=== PATIENT | male | born 1970 | race Caucasian/White ===

== ENCOUNTER 2017-08-14 13:52 | Inpatient (IN) | payer OTHER ==
[2017-08-14 16:34] VITALS: BMI 35.9
--- NOTE | 2017-08-14 17:33 | HP ---
COWS - Scale Resting Pulse: 0= [place] 80 or Below Sweatin= Chills/Flushing Restless Observation: 1= Difficult to Sit Still Pupil Size: 1= Pupils >than Normal Bone or Joint Aches: 1= Mild Discomfort Runny Nose/ Eye Tearin= None GI Upset > 30mins: 3= Vomiting/Diarrhea Tremor Observation: 2= Slight Tremor Visible Yawning Observation: 1= 1-2x During Session Anxiety or Irritability: 2=Irritable/Anxious Goose Flesh Skin: 3=Piloerection COWS Score: 15 CIWA Score - CIWA Score Nausea/Vomitin Muscle Tremors: 3 Anxiety: 2 Agitation: 1-Slight > Activity Paroxysmal Sweats: 2 Orientation: 0-Oriented Tacttile Disturbances: 2-Mild Itch/Numbness/Burn (burningand itch on both nads and arms) Auditory Disturbances: 0-None Visual Disturbances: 1-Very Mild Sensitivity Headache: 2-Mild CIWA-Ar Total Score: 16 Admission ROS [facility] - HPI Chief Complaint: I relapse again I want to get this detox done and I really want to go to rehab Allergies/Adverse Reactions: Allergies Allergy/AdvReac Type Severity Reaction Status Date / Time No Known Allergies Allergy Verified 08/14/17 16:40 History of Present Illness: 47 yo male with hx of IV heroin, THC, cocaine, alcohol , Xanax nicotine is here seeking detox. Patient reports currently smokes, 1 pack of cigarettes per day PMHX: depression, anxiety, insomnia, deneis any other medical problems. Last detox 2 weeks ago at [facility]. Denies suicidal / homicidal ideation or suicide attempts Reports hx of blackouts, last episode 45 days ago, denies hx of seizures. Denies hx of overdose. Longest period of sobriety 3 yeras about 10 years ago . Exam Limitations: No Limitations - Ebola screening Have you traveled outside of the country in the last 21 days: No Have you had contact with anyone from an Ebola affected area: No Have you been sick,other than usual withdrawal symptoms: No Do you have a fever: No - Review of Systems Constitutional: Chills, Loss of Appetite, Changes in sleep, Weakness, Unintentional Wgt. Loss (2-3 weeks loss 5 lbs) EENT: reports: Other (uses glasses for reading) Respiratory: reports: Wheezing (with cigarrette smoking) Cardiac: reports: No Symptoms Reported, See HPI GI: reports: Diarrhea, Nausea, Poor Appetite, Poor Fluid Intake, Vomiting, Abdominal cramping : reports: No Symptoms Reported Musculoskeletal: reports: Back Pain, Joint Pain Integumentary: reports: No Symptoms Reported Neuro: reports: Headache, Numbness (both hands and arms) Endocrine: reports: See HPI, Increased Thirst Hematology: reports: No Symptoms Reported Psychiatric: reports: Orientated x3, Depressed Other Systems: Reviewed and Negative Patient History - Patient Medical History Hx Anemia: No Hx Asthma: No Hx Chronic Obstructive Pulmonary Disease (COPD): No Hx Cancer: No Hx Cardiac Disorders: No Hx Congestive Heart Failure: No Hx Hypertension: No Hx Hypercholesterolemia: No Hx Pacemaker: No HX Cerebrovascular Accident: No Hx Seizures: No Hx Dementia: No Hx Diabetes: No Hx Gastrointestinal Disorders: No Hx Liver Disease: No Hx Genitourinary Disorders: No Hx Sexually Transmitted Disorders: No Hx Renal Disease (ESRD): No Hx Thyroid Disease: No Hx Human Immunodeficiency Virus (HIV): No (last tested 2016 ) Hx Hepatitis C: Yes (treated 2016) Hx Depression: Yes Hx Suicide Attempt: No Hx Bipolar Disorder: No Hx Schizophrenia: No Other Medical History: SOB and wheezing no dx of asthma, attributes to cigarretes smoking since 14 - Patient Surgical History Past Surgical History: No Hx Neurologic Surgery: No Hx Cataract Extraction: No Hx Cardiac Surgery: No Hx Lung Surgery: No Hx Breast Surgery: No Hx Breast Biopsy: No Hx Abdominal Surgery: No Hx Appendectomy: No Hx Cholecystectomy: No Hx Genitourinary Surgery: No Hx Section: No Hx Orthopedic Surgery: No Anesthesia Reaction: No - PPD History Previous Implant?: Yes Documented Results: Negative w/o proof Implanted On Prior [facility] Admission?: No Date: 01/10/13 PPD to be Administered?: No - Reproductive History Patient is a Female of Child Bearing Age (11 -55 yrs old): No - Smoking Cessation Smoking history: Current every day smoker Have you smoked in the past 12 months: Yes Aproximately how many cigarettes per day: 20 Hx Chewing Tobacco Use: No Initiated information on smoking cessation: Yes 'Breaking Loose' booklet given: 08/14/17 - Substance & Tx. History Hx Alcohol Use: Yes Hx Substance Use: Yes Substance Use Type: Alcohol, Cocaine, Heroin, Marijuana, Opiates, Tranquilizers Hx Substance Use Treatment: Yes ([facility] 2 weeks ago ) - Substances Abused Heroin Route: Injection Frequency: Daily Amount used: 15 BAGS Age of first use: 29 Date of Last Use: 08/14/17 Alprazolam (Xanax) Route: Oral Frequency: Daily Amount used: 4-6MG Age of first use: 29 Date of Last Use: 08/13/17 Alcohol Route: Oral Frequency: Daily Amount used: 1-2 PINTS VODKA Age of first use: 15 Date of Last Use: 08/11/17 Crack Route: Smoking Frequency: Daily Amount used: $50-60 Age of first use: 29 Date of Last Use: 08/13/17 Marijuana/Hashish Route: Smoking Frequency: Daily Amount used: 2 JOINTS Age of first use: 14 Date of Last Use: 08/13/17 Family Disease History - Family Disease History Family Disease History: Other: Father (., accident on the job ), Mother ( alive and well ) Admission Physical Exam [facility] - Vital Signs Vital Signs: Vital Signs - 24 hr 08/14/17 16:33 Temperature 96.9 F L Pulse Rate 68 Respiratory 20 Rate Blood Pressure 147/89 - Physical General Appearance: Yes: Mild Distress, Obese, Tremorous, Sweating HEENTM: Yes: EOMI, Hearing grossly Normal, Normal ENT Inspection, Normocephalic , Normal Voice, SWATI, Pharynx Normal, Tm's normal Respiratory: Yes: Chest Non-Tender, Lungs Clear, Normal Breath Sounds, No Respiratory Distress, No Accessory Muscle Use Neck: Yes: Within Normal Limits Breast: Yes: Breast Exam Deferred Cardiology: Yes: Regular Rhythm, Regular Rate Abdominal: Yes: Normal Bowel Sounds, Non Tender, Soft, Protuberent Genitourinary: Yes: Within Normal Limits Musculoskeletal: Yes: full range of Motion, Gait Steady, Pelvis Stable, Back pain Extremities: Yes: Normal Capillary Refill, Normal Inspection, Normal Range of Motion, Tremors Neurological: 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, Fully Oriented, Alert, Motor Strength 5/5, Depressed Affect Integumentary: Yes: Normal Color, Diaphoresis, Track Faust (bilateral track faust on both arms without signs of infection) Lymphatic: Yes: Within Normal Limits - Diagnostic (1) Obese Current Visit: Yes Status: Acute Qualifiers: Obesity type: unspecified obesity type Body mass index: BMI 35.0-35.9 (2) Opioid dependence with withdrawal Current Visit: Yes Status: Acute (3) Marijuana dependence Current Visit: Yes Status: Acute (4) Alcohol dependence with uncomplicated withdrawal Current Visit: Yes Status: Acute (5) Sedative, hypnotic or anxiolytic dependence with withdrawal, unspecified Current Visit: Yes Status: Acute (6) Back pain Current Visit: Yes Status: Acute Qualifiers: Back pain location: low back pain Back pain laterality: bilateral Sciatica presence: without sciatica (7) Depressed affect Current Visit: Yes Status: Acute (8) Cocaine dependence Current Visit: No Status: Active (9) Nicotine dependence Current Visit: No Status: Active (10) Weight decreased Current Visit: No Status: Active (11) Nausea vomiting and diarrhea Current Visit: Yes Status: Acute (12) Elevated blood pressure reading in office without diagnosis of hypertension Current Visit: Yes Status: Acute Cleared for Admission [facility] - Detox or Rehab [facility] Level of Care: Medically Managed Detox Regimen/Protocol: Methadone/Valium S Breath Alcohol Content Breath Alcohol Content: 0 Urine Drug Screen - Results Drug Screen Negative: No Urine Drug Screen Results: THC-Marijuana, KALEN-Cocaine, OPI-Opiates, BZO- Benzodiazepines, MTD-Methadone
[2017-08-14] MEDS ORDERED: ACETAMINOPHEN 325 MG TABLET (FP) PO PRN (17:50)
[2017-08-14] MEDS ORDERED: guaiFENesin/D-METHORPHAN HB 10 ML UNIT-DOSE CUPS PO PRN (17:50)
[2017-08-14] MEDS ORDERED: P-EPHED 60MG/TRIPROLIDI 2.5MG TABLET PO PRN (17:50)
[2017-08-14] MEDS ORDERED: LOPERAMIDE HCL 2 MG CAPSULE PO PRN (17:50)
[2017-08-14] MEDS ORDERED: MAGNESIUM CITRATE 300 ML BOTTLE PO PRN (17:50)
[2017-08-14] MEDS ORDERED: MAG HYDROX/AL HYDROX/SIMETH 30 ML UNIT-DOSE CUP PO PRN (17:50)
[2017-08-14] MEDS ORDERED: NICOTINE POLACRILEX 2 MG GUM BC PRN (17:50)
[2017-08-14] MEDS ORDERED: MAGNESIUM HYDROX 2400MG/30ML ORAL SUSPENSION 30 ML CUP PO PRN (17:50)
[2017-08-14] MEDS ORDERED: MENTHOL/PHENOL 1 EACH UD MM PRN (17:50)
[2017-08-14] MEDS ORDERED: CYCLOBENZAPRINE HCL 10 MG TABLET (FP) PO PRN (17:53)
[2017-08-14] MEDS ORDERED: diazePAM 5 MG TABLET PO ONE (18:45)
[2017-08-14] MEDS ORDERED: METHADONE HCL 10 MG TABLET (FOR DETOX USE ONLY) PO ONE ×2 (18:45→23:00)
[2017-08-14] MEDS: LIDOCAINE 5% TOPICAL PATCH TP SCH (20:27)
[2017-08-14] MEDS ORDERED: MELATONIN 5 MG TABLETS PO PRN (22:00)
[2017-08-14] MEDS: diazePAM 5 MG TABLET PO SCH (22:46)
[2017-08-14] MEDS: THIAMINE HCL 100 MG TABLET (FP) PO SCH (22:46)
[2017-08-14] MEDS: LIDOCAINE PATCH REMOVAL MC SCH (22:47)
[2017-08-15] MEDS: diazePAM 5 MG TABLET PO PRN ×3 (01:34→19:54)
[2017-08-15] MEDS: diazePAM 5 MG TABLET PO SCH ×3 (05:58→22:54)
[2017-08-15 06:16] LABS: URINE APPEARANCE TURBID; URINE BILIRUBIN NEGATIVE (<2.0 mg/dL); URINE BLOOD NEGATIVE (NEGATIVE); URINE COLOR AMBER; URINE GLUCOSE (UA) NEGATIVE (NEGATIVE); URINE KETONE NEGATIVE (NEGATIVE); URINE LEUK ESTERASE NEGATIVE (NEGATIVE); URINE NITRITE NEGATIVE (NEGATIVE); URINE PROTEIN NEGATIVE (NEGATIVE); URINE UROBILINOGEN NEGATIVE mg/dL (0.2-1.0)
[2017-08-15] MEDS ORDERED: METHADONE HCL 10 MG TABLET (FOR DETOX USE ONLY) PO SCH (10:00)
[2017-08-15 10:08] LABS: HEMATOCRIT 41.5 % (35.4-49); MCH 30.1 pg (25.7-33.7); MCHC 33.7 g/dl (32.0-35.9); MEAN CELL VOLUME 89.4 fl (80-96); MEAN PLT VOLUME 10.7 fl (7.5-11.1); PLATELET COUNT 139 K/MM3 (134-434); RBC 4.64 M/mm3 (4.00-5.60); RDW 13.9 % (11.9-15.9); WHITE BLOOD COUNT 5.7 K/mm3 (4.0-10.0)
[2017-08-15 10:36] LABS: CHLORIDE 107 mmol/L (98-107); POTASSIUM 3.9 mmol/L (3.5-5.1); SODIUM 141 mmol/L (136-145)
[2017-08-15 11:01] LABS: ALBUMIN 3.6 g/dl (3.4-5.0); ALK PHOS 64 U/L (45-117); ANION GAP 6 (8-16); BILIRUBIN,TOTAL 0.3 mg/dL (0.2-1.0); BLOOD UREA NITROGEN 12 mg/dL (7-18); CALCIUM 8.4 mg/dL (8.5-10.1); CO2 28 mmol/L (21-32); CREATININE 0.8 mg/dL (0.7-1.3); GLUCOSE,RANDOM 110 mg/dL (74-106); SGOT/AST 8 U/L (15-37); SGPT/ALT 18 U/L (12-78); TOT PROT 6.4 g/dl (6.4-8.2)
[2017-08-15] MEDS: PRENATAL VITAMINS W/ FOLIC ACID TABLET (FP) PO SCH (11:10)
[2017-08-15] MEDS: NICOTINE 21 MG/24 HOURS TOPICAL PATCH TD SCH (11:10)
[2017-08-15] MEDS: LIDOCAINE 5% TOPICAL PATCH TP SCH (11:10)
--- NOTE | 2017-08-15 11:31 | EKG ---
Test Reason : Blood Pressure : / mmHG Vent. Rate : 067 BPM Atrial Rate : 067 BPM P-R Int : 140 ms QRS Dur : 086 ms QT Int : 388 ms P-R-T Axes : 049 056 057 degrees QTc Int : 409 ms NORMAL SINUS RHYTHM WITH SINUS ARRHYTHMIA POSSIBLE LEFT ATRIAL ENLARGEMENT BORDERLINE ECG NO PREVIOUS ECGS AVAILABLE Confirmed by TERRI PSACUAL, NATHANIEL ([id number]) on 08/15/2017 11:30:55 AM Referred By: Confirmed By:NATHANIEL MURRAY MD
--- NOTE | 2017-08-15 14:01 | PN ---
[facility] CIWA - CIWA Score Nausea/Vomitin-No Nausea/No Vomiting Muscle Tremors: 4-Moderate,w/Arms Extend Anxiety: 4-Mod. Anxious/Guarded Agitation: 4-Moderately Restless Paroxysmal Sweats: 1-Minimal Palms Moist Orientation: 0-Oriented Tacttile Disturbances: 0-None Auditory Disturbances: 0-None Visual Disturbances: 0-None Headache: 0-None Present CIWA-Ar Total Score: 13 S COWS - Scale Resting Pulse: 0= [place] 80 or Below Sweatin= Chills/Flushing Restless Observation: 0= Sits Still Pupil Size: 2= Moderately Dilated Bone or Joint Aches: 4=Acute Joint/Muscle Pain Runny Nose/ Eye Tearin= None GI Upset > 30mins: 0= None Tremor Observation of Outstretched Hands: 2= Slight Tremor Visible Yawning Observation: 0= None Anxiety or Irritability: 2=Irritable/Anxious Goose Flesh Skin: 0=Smooth Skin COWS Score: 11 S Progress Note (SOAP) Subjective: ANXIETY,SWEARS/CHILLS. ALERT O X 3. NAD. Objective: 08/15/17 14:00 Vital Signs Temperature 97.4 F L 08/15/17 09:56 Pulse Rate 62 08/15/17 09:56 Respiratory Rate 18 08/15/17 09:56 Blood Pressure 128/89 08/15/17 09:56 O2 Sat by Pulse Oximetry (%) Laboratory Last Values WBC 5.7 K/mm3 (4.0-10.0) 08/15/17 07:30 RBC 4.64 M/mm3 (4.00-5.60) 08/15/17 07:30 Hgb 14.0 GM/dL (11.7-16.9) 08/15/17 07:30 Hct 41.5 % (35.4-49) 08/15/17 07:30 MCV 89.4 fl (80-96) 08/15/17 07:30 MCH 30.1 pg (25.7-33.7) 08/15/17 07:30 MCHC 33.7 g/dl (32.0-35.9) 08/15/17 07:30 RDW 13.9 % (11.9-15.9) 08/15/17 07:30 Plt Count 139 K/MM3 (134-434) D 08/15/17 07:30 MPV 10.7 fl (7.5-11.1) 08/15/17 07:30 Sodium 141 mmol/L (136-145) 08/15/17 07:30 Potassium 3.9 mmol/L (3.5-5.1) 08/15/17 07:30 Chloride 107 mmol/L (98-107) 08/15/17 07:30 Carbon Dioxide 28 mmol/L (21-32) D 08/15/17 07:30 Anion Gap 6 (8-16) L 08/15/17 07:30 BUN 12 mg/dL (7-18) 08/15/17 07:30 Creatinine 0.8 mg/dL (0.7-1.3) 08/15/17 07:30 Creat Clearance w eGFR > 60 (>60) 08/15/17 07:30 Random Glucose 110 mg/dL (74-106) H 08/15/17 07:30 Calcium 8.4 mg/dL (8.5-10.1) L 08/15/17 07:30 Total Bilirubin 0.3 mg/dL (0.2-1.0) D 08/15/17 07:30 AST 8 U/L (15-37) L D 08/15/17 07:30 ALT 18 U/L (12-78) D 08/15/17 07:30 Alkaline Phosphatase 64 U/L (45-117) D 08/15/17 07:30 Total Protein 6.4 g/dl (6.4-8.2) 08/15/17 07:30 Albumin 3.6 g/dl (3.4-5.0) 08/15/17 07:30 Urine Color Mady 08/14/17 22:20 Urine Appearance Turbid 08/14/17 22:20 Urine pH 5.0 (5.0-8.0) 08/14/17 22:20 Ur Specific [place] 1.019 (1.001-1.035) 08/14/17 22:20 Urine Protein Negative (NEGATIVE) 08/14/17 22:20 Urine Glucose (UA) Negative (NEGATIVE) 08/14/17 22:20 Urine Ketones Negative (NEGATIVE) 08/14/17 22:20 Urine Blood Negative (NEGATIVE) 08/14/17 22:20 Urine Nitrite Negative (NEGATIVE) 08/14/17 22:20 Urine Bilirubin Negative (<2.0 mg/dL) 08/14/17 22:20 Urine Urobilinogen Negative mg/dL (0.2-1.0) 08/14/17 22:20 Ur Leukocyte Esterase Negative (NEGATIVE) 08/14/17 22:20 RPR Titer Nonreactive (NONREACTIVE) 08/15/17 07:30 Assessment: 08/15/17 14:00 WITHDRAWAL SX Plan: CONTINUE DETOX
--- NOTE | 2017-08-15 15:10 | CONSULT ---
[facility] Psychiatric Consult - Data Date of interview: 08/15/17 Admission source: [facility] Identifying data: Readmision to [facility] for this 47 y/o [place]-born male seeking detox treatment on for heroin,xanax,alcohol,cocaine and marihuana dependence.Patient is ,a father of two,homeless (lives in a penitentiary),unemployed and supported on personal savings. Substance Abuse History: Confirmed by patient in this session.Details in current [facility] report : Smoking history: Current every day smoker. Have you smoked in the past 12 months: Yes. Aproximately how many cigarettes per day: 20. Hx Chewing Tobacco Use: No. Initiated information on smoking cessation: Yes. 'Breaking Loose' booklet given: 08/14/17. - Substance & Tx. History. Hx Alcohol Use: Yes. Hx Substance Use: Yes. Substance Use Type: Alcohol, Cocaine , Heroin, Marijuana, Opiates, Tranquilizers. Hx Substance Use Treatment: Yes ( [facility] 2 weeks ago ). - Substances Abused. Heroin. Route: Injection. Frequency: Daily. Amount used: 15 BAGS. Age of first use: 29. Date of Last Use: 08/14/17. Alprazolam (Xanax). Route: Oral. Frequency: Daily. Amount used: 4-6MG. Age of first use: 29. Date of Last Use: 08/13/17. Alcohol. Route: Oral. Frequency: Daily. Amount used: 1-2 PINTS VODKA. Age of first use : 15. Date of Last Use: 08/11/17. Crack. Route: Smoking. Frequency: Daily. Amount used: $50-60. Age of first use: 29. Date of Last Use: . Marijuana/Hashish. Route: Smoking. Frequency: Daily. Amount used: 2 JOINTS. Age of first use: 14. Date of Last Use: 08/13/17 Medical History: Bronchial asthma. Psychiatric History: Patient admits to one psychiatric hospitalization (1990) for a suicide attempt.Name of institution not recalled.No follow-up since discharge.Mr Henderson denies past exposure to psychotropic medications. Physical/Sexual Abuse/Trauma History: No history of abuse.Upset by multiple stressors : being on parole,homelessness,dwindling financial assets, homelessness and unemployment. Additional Comment: Urine Drug Screen Results: THC-Marijuana, KALEN-Cocaine, OPI- Opiates, BZO-Benzodiazepines, MTD-Methadone.Noted. Mental Status Exam - Mental Status Exam Alert and Oriented to: Time, Place, Person Cognitive Function: Good Patient Appearance: Well Groomed (overweight) Mood: Nervous, Anxious, Irritable Affect: Mood Congruent Patient Behavior: Fatigued, Appropriate, Cooperative Speech Pattern: Clear, Appropriate Voice Loudness: Normal Thought Process: Intact, Goal Oriented Thought Disorder: Not Present Hallucinations: Denies Suicidal Ideation: Denies Homicidal Ideation: Denies Insight/Judgement: Poor Sleep: Poorly, Difficulty falling asleep Appetite: Good Muscle strength/Tone: Normal Gait/Station: Normal Psychiatric Findings - Problem List ([facility] 1, 2,3) (1) Opioid dependence with withdrawal Current Visit: Yes Status: Acute (2) Alcohol dependence with uncomplicated withdrawal Current Visit: Yes Status: Acute (3) Cocaine dependence, uncomplicated Current Visit: Yes Status: Acute (4) Marijuana dependence Current Visit: Yes Status: Acute (5) Nicotine dependence Current Visit: Yes Status: Acute Qualifiers: Nicotine product type: cigarettes Substance use status: in withdrawal Qualified Code(s): F17.213 - Nicotine dependence, cigarettes, with withdrawal (6) Sedative, hypnotic or anxiolytic dependence with withdrawal, unspecified Current Visit: Yes Status: Acute (7) Substance induced mood disorder Current Visit: Yes Status: Acute (8) Insomnia Current Visit: Yes Status: Acute - Initial Treatment Plan Initial Treatment Plan: Psychoeducation.Sleep hygiene.Detoxification in progress.Ambien 10 mg po hs prn.Patient is informed of risk of parasomnias.Agrees with plan.Observation.
[2017-08-15] MEDS: THIAMINE HCL 100 MG TABLET (FP) PO SCH (22:54)
[2017-08-15] MEDS: ZOLPIDEM TARTRATE 10 MG TABLET (PARK CARE ONLY) PO PRN (22:54)
[2017-08-15] MEDS: LIDOCAINE PATCH REMOVAL MC SCH (23:10)
[2017-08-16] MEDS: diazePAM 5 MG TABLET PO PRN ×4 (03:20→17:20)
[2017-08-16] MEDS: METHADONE HCL 5 MG TABLET (FOR DETOX USE ONLY) PO SCH (10:55)
[2017-08-16] MEDS: diazePAM 5 MG TABLET PO SCH ×2 (10:55→22:40)
[2017-08-16] MEDS: PRENATAL VITAMINS W/ FOLIC ACID TABLET (FP) PO SCH (10:55)
[2017-08-16] MEDS: LIDOCAINE 5% TOPICAL PATCH TP SCH (10:56)
[2017-08-16] MEDS: NICOTINE 21 MG/24 HOURS TOPICAL PATCH TD SCH (10:57)
--- NOTE | 2017-08-16 14:24 | PN ---
[facility] CIWA - CIWA Score Nausea/Vomitin-No Nausea/No Vomiting Muscle Tremors: 4-Moderate,w/Arms Extend Anxiety: 5 Agitation: 4-Moderately Restless Paroxysmal Sweats: 1-Minimal Palms Moist Orientation: 0-Oriented Tacttile Disturbances: 0-None Auditory Disturbances: 0-None Visual Disturbances: 0-None Headache: 0-None Present CIWA-Ar Total Score: 14 S COWS - Scale Resting Pulse: 0= [place] 80 or Below Sweatin= Chills/Flushing Restless Observation: 3= Extraneous Movement Pupil Size: 0= Normal to Room Light Bone or Joint Aches: 4=Acute Joint/Muscle Pain Runny Nose/ Eye Tearin= Nasal Congestion GI Upset > 30mins: 1= Stomach Cramp Tremor Observation of Outstretched Hands: 1= Tremor [place], Not Seen Yawning Observation: 0= None Anxiety or Irritability: 2=Irritable/Anxious Goose Flesh Skin: 0=Smooth Skin COWS Score: 13 S Progress Note (SOAP) Subjective: ANXIETY,SWEATS,IRRITABILITY,FATIGUE, INTERMITTENT SLEEP. Objective: 08/16/17 14:26 Vital Signs Temperature 98.7 F 08/16/17 14:03 Pulse Rate 63 08/16/17 14:03 Respiratory Rate 18 08/16/17 14:03 Blood Pressure 126/81 08/16/17 14:03 O2 Sat by Pulse Oximetry (%) Laboratory Last Values WBC 5.7 K/mm3 (4.0-10.0) 08/15/17 07:30 RBC 4.64 M/mm3 (4.00-5.60) 08/15/17 07:30 Hgb 14.0 GM/dL (11.7-16.9) 08/15/17 07:30 Hct 41.5 % (35.4-49) 08/15/17 07:30 MCV 89.4 fl (80-96) 08/15/17 07:30 MCH 30.1 pg (25.7-33.7) 08/15/17 07:30 MCHC 33.7 g/dl (32.0-35.9) 08/15/17 07:30 RDW 13.9 % (11.9-15.9) 08/15/17 07:30 Plt Count 139 K/MM3 (134-434) D 08/15/17 07:30 MPV 10.7 fl (7.5-11.1) 08/15/17 07:30 Sodium 141 mmol/L (136-145) 08/15/17 07:30 Potassium 3.9 mmol/L (3.5-5.1) 08/15/17 07:30 Chloride 107 mmol/L (98-107) 08/15/17 07:30 Carbon Dioxide 28 mmol/L (21-32) D 08/15/17 07:30 Anion Gap 6 (8-16) L 08/15/17 07:30 BUN 12 mg/dL (7-18) 08/15/17 07:30 Creatinine 0.8 mg/dL (0.7-1.3) 08/15/17 07:30 Creat Clearance w eGFR > 60 (>60) 08/15/17 07:30 Random Glucose 110 mg/dL (74-106) H 08/15/17 07:30 Calcium 8.4 mg/dL (8.5-10.1) L 08/15/17 07:30 Total Bilirubin 0.3 mg/dL (0.2-1.0) D 08/15/17 07:30 AST 8 U/L (15-37) L D 08/15/17 07:30 ALT 18 U/L (12-78) D 08/15/17 07:30 Alkaline Phosphatase 64 U/L (45-117) D 08/15/17 07:30 Total Protein 6.4 g/dl (6.4-8.2) 08/15/17 07:30 Albumin 3.6 g/dl (3.4-5.0) 08/15/17 07:30 Urine Color Mady 08/14/17 22:20 Urine Appearance Turbid 08/14/17 22:20 Urine pH 5.0 (5.0-8.0) 08/14/17 22:20 Ur Specific [place] 1.019 (1.001-1.035) 08/14/17 22:20 Urine Protein Negative (NEGATIVE) 08/14/17 22:20 Urine Glucose (UA) Negative (NEGATIVE) 08/14/17 22:20 Urine Ketones Negative (NEGATIVE) 08/14/17 22:20 Urine Blood Negative (NEGATIVE) 08/14/17 22:20 Urine Nitrite Negative (NEGATIVE) 08/14/17 22:20 Urine Bilirubin Negative (<2.0 mg/dL) 08/14/17 22:20 Urine Urobilinogen Negative mg/dL (0.2-1.0) 08/14/17 22:20 Ur Leukocyte Esterase Negative (NEGATIVE) 08/14/17 22:20 RPR Titer Nonreactive (NONREACTIVE) 08/15/17 07:30 Assessment: 08/16/17 14:26 WITHDRAWAL SX Plan: CONTINUE DETOX
--- NOTE | 2017-08-16 16:49 | PN ---
[facility] Progress Note Note: Psychiatric nurse practitioner note: Pt. approached bedside for psychiatric reconsultation. Pt. refused. Stated to movie writer, " not right now. We can talk tomorrow." Psychiatric reconsultation deferred.
[2017-08-16] MEDS: hydrOXYzine PAMOATE 50 MG CAPSULE (FP) PO PRN (20:40)
[2017-08-16] MEDS: ZOLPIDEM TARTRATE 10 MG TABLET (PARK CARE ONLY) PO PRN (22:40)
[2017-08-16] MEDS: THIAMINE HCL 100 MG TABLET (FP) PO SCH (22:40)
[2017-08-16] MEDS: LIDOCAINE PATCH REMOVAL MC SCH (22:41)
[2017-08-17] MEDS: diazePAM 5 MG TABLET PO PRN ×2 (05:08→15:18)
[2017-08-17] MEDS ORDERED: TRIMETHOBENZAMIDE HCL 200MG/2ML INJ IM PRN (09:52)
[2017-08-17] MEDS: METHADONE HCL 5 MG TABLET (FOR DETOX USE ONLY) PO SCH (10:44)
[2017-08-17] MEDS: PRENATAL VITAMINS W/ FOLIC ACID TABLET (FP) PO SCH (10:44)
[2017-08-17] MEDS: CYCLOBENZAPRINE HCL 5 MG TABLET PO PRN ×2 (10:45→22:42)
[2017-08-17] MEDS: NICOTINE 21 MG/24 HOURS TOPICAL PATCH TD SCH (10:45)
[2017-08-17] MEDS: diazePAM 5 MG TABLET PO SCH ×2 (10:45→22:40)
[2017-08-17] MEDS: hydrOXYzine PAMOATE 50 MG CAPSULE (FP) PO PRN ×3 (10:46→22:40)
[2017-08-17] MEDS: LIDOCAINE 5% TOPICAL PATCH TP SCH (10:47)
--- NOTE | 2017-08-17 12:32 | PN ---
[facility] Progress Note (SOAP) Subjective: Sweating, Fatigue, H/A, Interrupted Sleep, Body Aches, Stomach Cramping, Nausea , Diarrhea. Objective: PATIENT A & O X 3. NO ACUTE DISTRESS. 08/17/17 12:30 Vital Signs Temperature 96.4 F L 08/17/17 09:16 Pulse Rate 78 08/17/17 09:16 Respiratory Rate 18 08/17/17 09:16 Blood Pressure 126/78 08/17/17 09:16 O2 Sat by Pulse Oximetry (%) Laboratory Tests 08/14/17 08/15/17 08/15/17 22:20 07:30 07:30 WBC 5.7 RBC 4.64 Hgb 14.0 Hct 41.5 MCV 89.4 MCH 30.1 MCHC 33.7 RDW 13.9 Plt Count 139 D MPV 10.7 Sodium 141 Potassium 3.9 Chloride 107 Carbon Dioxide 28 D Anion Gap 6 L BUN 12 Creatinine 0.8 Creat Clearance w eGFR > 60 Random Glucose 110 H Calcium 8.4 L Total Bilirubin 0.3 D AST 8 L D ALT 18 D Alkaline Phosphatase 64 D Total Protein 6.4 Albumin 3.6 Urine Color Mady Urine Appearance Turbid Urine pH 5.0 Ur Specific [place] 1.019 Urine Protein Negative Urine Glucose (UA) Negative Urine Ketones Negative Urine Blood Negative Urine Nitrite Negative Urine Bilirubin Negative Urine Urobilinogen Negative Ur Leukocyte Esterase Negative RPR Titer 08/15/17 07:30 WBC RBC Hgb Hct MCV MCH MCHC RDW Plt Count MPV Sodium Potassium Chloride Carbon Dioxide Anion Gap BUN Creatinine Creat Clearance w eGFR Random Glucose Calcium Total Bilirubin AST ALT Alkaline Phosphatase Total Protein Albumin Urine Color Urine Appearance Urine pH Ur Specific [place] Urine Protein Urine Glucose (UA) Urine Ketones Urine Blood Urine Nitrite Urine Bilirubin Urine Urobilinogen Ur Leukocyte Esterase RPR Titer Nonreactive LABS NOTED. Assessment: 08/17/17 12:30 WITHDRAWAL SYMPTOMS. Plan: CONTINUE DETOX. INCREASE DAILY PO FLUID INTAKE. PRN IMMODIUM FOR DIARRHEA. PRN TIGAN IM FOR NAUSEA. ENCOURAGE AMBULATION.
[2017-08-17] MEDS: ZOLPIDEM TARTRATE 10 MG TABLET (PARK CARE ONLY) PO PRN (22:40)
[2017-08-17] MEDS: THIAMINE HCL 100 MG TABLET (FP) PO SCH (22:43)
[2017-08-17] MEDS: LIDOCAINE PATCH REMOVAL MC SCH (22:43)
[2017-08-18] MEDS ORDERED: diazePAM 5 MG TABLET PO SCH (10:00)
[2017-08-18] MEDS ORDERED: METHADONE HCL 10 MG TABLET (FOR DETOX USE ONLY) PO SCH (10:00)
[2017-08-18] MEDS: LIDOCAINE 5% TOPICAL PATCH TP SCH (10:45)
[2017-08-18] MEDS: PRENATAL VITAMINS W/ FOLIC ACID TABLET (FP) PO SCH (10:45)
[2017-08-18] MEDS: NICOTINE 21 MG/24 HOURS TOPICAL PATCH TD SCH (10:45)
--- NOTE | 2017-08-18 16:32 | PN ---
[facility] Progress Note (SOAP) Subjective: Anxious, Fatigue, Sweating.
[2017-08-18] MEDS: hydrOXYzine PAMOATE 50 MG CAPSULE (FP) PO PRN ×2 (16:33→22:43)
[2017-08-18] MEDS: LIDOCAINE PATCH REMOVAL MC SCH (22:44)
[2017-08-18] MEDS: THIAMINE HCL 100 MG TABLET (FP) PO SCH (22:44)
[2017-08-18] MEDS: IBUPROFEN 400 MG TABLET (FP) PO PRN (22:45)
[2017-08-19] MEDS ORDERED: METHADONE HCL 5 MG TABLET (FOR DETOX USE ONLY) PO SCH (06:00)
[2017-08-19] MEDS: CYCLOBENZAPRINE HCL 5 MG TABLET PO PRN (06:17)
[2017-08-19] MEDS: hydrOXYzine PAMOATE 50 MG CAPSULE (FP) PO PRN ×2 (06:17→10:53)
[2017-08-19 06:49] VITALS: BP 101/56; PULSE 67; TEMP 96.9
[2017-08-19] MEDS: LIDOCAINE 5% TOPICAL PATCH TP SCH (10:49)
[2017-08-19] MEDS: PRENATAL VITAMINS W/ FOLIC ACID TABLET (FP) PO SCH (10:50)
[2017-08-19] MEDS: NICOTINE 21 MG/24 HOURS TOPICAL PATCH TD SCH (10:50)
[2017-08-19] MEDS: IBUPROFEN 400 MG TABLET (FP) PO PRN (10:55)
--- NOTE | 2017-08-19 12:20 | PN ---
[facility] Progress Note (SOAP) Subjective: Patient denies current Detox symptoms and reports that he feels well overall. Objective: PATIENT A & O X 3, OBSERVED AMBULATING ON UNIT. NO ACUTE DISTRESS. 08/19/17 12:19 Vital Signs Temperature 96.9 F L 08/19/17 06:49 Pulse Rate 67 08/19/17 06:49 Respiratory Rate 18 08/19/17 06:49 Blood Pressure 101/56 08/19/17 06:49 O2 Sat by Pulse Oximetry (%) Laboratory Tests 08/14/17 08/15/17 08/15/17 22:20 07:30 07:30 WBC 5.7 RBC 4.64 Hgb 14.0 Hct 41.5 MCV 89.4 MCH 30.1 MCHC 33.7 RDW 13.9 Plt Count 139 D MPV 10.7 Sodium 141 Potassium 3.9 Chloride 107 Carbon Dioxide 28 D Anion Gap 6 L BUN 12 Creatinine 0.8 Creat Clearance w eGFR > 60 Random Glucose 110 H Calcium 8.4 L Total Bilirubin 0.3 D AST 8 L D ALT 18 D Alkaline Phosphatase 64 D Total Protein 6.4 Albumin 3.6 Urine Color Mady Urine Appearance Turbid Urine pH 5.0 Ur Specific [place] 1.019 Urine Protein Negative Urine Glucose (UA) Negative Urine Ketones Negative Urine Blood Negative Urine Nitrite Negative Urine Bilirubin Negative Urine Urobilinogen Negative Ur Leukocyte Esterase Negative RPR Titer 08/15/17 07:30 WBC RBC Hgb Hct MCV MCH MCHC RDW Plt Count MPV Sodium Potassium Chloride Carbon Dioxide Anion Gap BUN Creatinine Creat Clearance w eGFR Random Glucose Calcium Total Bilirubin AST ALT Alkaline Phosphatase Total Protein Albumin Urine Color Urine Appearance Urine pH Ur Specific [place] Urine Protein Urine Glucose (UA) Urine Ketones Urine Blood Urine Nitrite Urine Bilirubin Urine Urobilinogen Ur Leukocyte Esterase RPR Titer Nonreactive LABS NOTED. Assessment: 08/19/17 12:20 COMPLETION OF DETOX REGIMEN. Plan: PATIENT SCHEDULED FOR DISCHARGE FROM DETOX UNIT TODAY.
--- NOTE | 2017-08-19 12:25 | DS ---
[facility] Detox Discharge Summary Admission Date: 08/14/17 Discharge Date: 08/19/17 - History Present History: Alcohol Dependence, Cocaine Dependence, Opioid Dependence, Sedative Dependence Additional Comments: PATIENT GOING TO [facility] FOR AFTERCARE. PATIENT WAS DISCHARGED FROM DETOX UNIT IN STABLE MEDICAL CONDITION. Pertinent Past History: Depression, Insomnia, Nausea, Vomiting, Diarrhea, Hep C (Treated), Elevated BP.Nicotine Dependence, Back Pain, Weight Decreased. - Physical Exam Results Vital Signs: Vital Signs Temperature 96.9 F L 08/19/17 06:49 Pulse Rate 67 08/19/17 06:49 Respiratory Rate 18 08/19/17 06:49 Blood Pressure 101/56 08/19/17 06:49 O2 Sat by Pulse Oximetry (%) Pertinent Admission Physical Exam Findings: WITHDRAWAL SYMPTOMS. Laboratory Tests 08/14/17 08/15/17 08/15/17 22:20 07:30 07:30 WBC 5.7 RBC 4.64 Hgb 14.0 Hct 41.5 MCV 89.4 MCH 30.1 MCHC 33.7 RDW 13.9 Plt Count 139 D MPV 10.7 Sodium 141 Potassium 3.9 Chloride 107 Carbon Dioxide 28 D Anion Gap 6 L BUN 12 Creatinine 0.8 Creat Clearance w eGFR > 60 Random Glucose 110 H Calcium 8.4 L Total Bilirubin 0.3 D AST 8 L D ALT 18 D Alkaline Phosphatase 64 D Total Protein 6.4 Albumin 3.6 Urine Color Mady Urine Appearance Turbid Urine pH 5.0 Ur Specific [place] 1.019 Urine Protein Negative Urine Glucose (UA) Negative Urine Ketones Negative Urine Blood Negative Urine Nitrite Negative Urine Bilirubin Negative Urine Urobilinogen Negative Ur Leukocyte Esterase Negative RPR Titer 08/15/17 07:30 WBC RBC Hgb Hct MCV MCH MCHC RDW Plt Count MPV Sodium Potassium Chloride Carbon Dioxide Anion Gap BUN Creatinine Creat Clearance w eGFR Random Glucose Calcium Total Bilirubin AST ALT Alkaline Phosphatase Total Protein Albumin Urine Color Urine Appearance Urine pH Ur Specific [place] Urine Protein Urine Glucose (UA) Urine Ketones Urine Blood Urine Nitrite Urine Bilirubin Urine Urobilinogen Ur Leukocyte Esterase RPR Titer Nonreactive LABS NOTED. - Treatment Hospital Course: Detox Protocol Followed, Detoxed Safely, Responded well, Discharged Condition Good, Rehab Referral Accepted [facility] . - Medication Discharge Medications: Ambulatory Orders NK [No Known Home Medication] 08/14/17 - Diagnosis (1) Alcohol dependence with uncomplicated withdrawal Current Visit: Yes Status: Acute (2) Back pain Current Visit: Yes Status: Acute Qualifiers: Back pain location: low back pain Chronicity: unspecified Back pain laterality: bilateral Sciatica presence: without sciatica Qualified Code(s) : M54.5 - Low back pain (3) Cocaine dependence, uncomplicated Current Visit: Yes Status: Acute (4) Elevated blood pressure reading in office without diagnosis of hypertension Current Visit: Yes Status: Acute (5) Marijuana dependence Current Visit: Yes Status: Acute (6) Opioid dependence with withdrawal Current Visit: Yes Status: Acute (7) Sedative, hypnotic or anxiolytic dependence with withdrawal, unspecified Current Visit: Yes Status: Acute (8) Obese Current Visit: Yes Status: Chronic Qualifiers: Obesity type: unspecified obesity type Obesity classification: adult class 2 (BMI 35 - 39.9) Serious obesity comorbidity presence: unspecified whether serious comorbidity present Body mass index: BMI 35.0-35.9 Qualified Code(s) : E66.9 - Obesity, unspecified; Z68.35 - Body mass index (BMI) 35.0-35.9, adult ; Z68.35 - Body mass index (BMI) 35.0-35.9, adult (9) Nausea vomiting and diarrhea Current Visit: Yes Status: Acute (10) Depressed affect Current Visit: Yes Status: Acute (11) Nicotine dependence Current Visit: Yes Status: Acute Qualifiers: Nicotine product type: cigarettes Substance use status: in withdrawal Qualified Code(s): F17.213 - Nicotine dependence, cigarettes, with withdrawal (12) Weight decreased Current Visit: Yes Status: Active (13) Insomnia Current Visit: Yes Status: Acute Qualifiers: Insomnia type: unspecified Qualified Code(s): G47.00 - Insomnia, unspecified (14) Substance induced mood disorder Current Visit: Yes Status: Acute - AMA Did Patient Leave Against Medical Advice: No
== END 2017-08-19 14:00 | disposition other institution (70) | DRG 773 ==
LOC: YASAS 13:52 → Y3N 17:11
PROVIDERS: ADMIT Internal Medicine; ATTEND Internal Medicine
PROC: HZ2ZZZZ Detoxification Services for Substance Abuse Treatment (ICD-10-PCS; principal; 2017-08-14)
DX: F11.23 Opioid dependence with withdrawal (principal); F10.230 Alcohol dependence with withdrawal, uncomplicated; F13.230 Sedative, hypnotic or anxiolytic dependence with withdrawal, uncomplicated; F14.20 Cocaine dependence, uncomplicated; F12.20 Cannabis dependence, uncomplicated; F17.213 Nicotine dependence, cigarettes, with withdrawal; F34.1 Dysthymic disorder; F19.24 Other psychoactive substance dependence with psychoactive substance-induced mood disorder; G47.00 Insomnia, unspecified; R03.0 Elevated blood-pressure reading, without diagnosis of hypertension; M54.5 Low back pain; R11.2 Nausea with vomiting, unspecified; R19.7 Diarrhea, unspecified; E66.9 Obesity, unspecified; Z68.35 Body mass index [BMI] 35.0-35.9, adult; Z87.898 Personal history of other specified conditions
CPT/HCPCS: 36415; 80053; 81003; 85027; 86593; 93005; 93010

== ENCOUNTER 2017-08-19 12:47 | Inpatient (IN) | payer OTHER ==
--- NOTE | 2017-08-19 12:34 | HP ---
[facility] Rehab Assess/Revision - Admission History Admitted to Rehab from: [facility] Date of Admission to Rehab: 08/19/2017. - Vital signs Vital Signs: NOTED; STABLE. - Findings Detox History & Physical reviewed: Yes Concur with findings: Yes Comments/Additional Findings: PATIENT'S MEDICAL / MEDICATION HISTORY REVIEWED PRIOR TO DISCHARGE FROM DETOX UNIT. PATIENT WAS DISCHARGED FROM DETOX UNIT TO BE TAKEN TO REHAB UNIT IN STABLE MEDICAL CONDITION. Inpatient Rehab Admission - Initial Determination Are CD services needed?: Yes Free of communicable disease: Yes Not in need of hospitalization: Yes - Rehab Admission Criteria Previous failed treatment: Yes Comorbidities: Yes Patient is meeting Inpatient Rehab admission criteria:: Yes
[~2017-08-19 12:47] MED LIST: LOPERAMIDE HCL 2 MG CAPSULE PO PRN; MAG HYDROX/AL HYDROX/SIMETH 30 ML UNIT-DOSE CUP PO PRN; MAGNESIUM CITRATE 300 ML BOTTLE PO PRN; MAGNESIUM HYDROX 2400MG/30ML ORAL SUSPENSION 30 ML CUP PO PRN; MENTHOL/PHENOL 1 EACH UD MM PRN; P-EPHED 60MG/TRIPROLIDI 2.5MG TABLET PO PRN; guaiFENesin/D-METHORPHAN HB 10 ML UNIT-DOSE CUPS PO PRN
[2017-08-19] MEDS: ACETAMINOPHEN 325 MG TABLET (FP) PO PRN (20:47)
--- NOTE | 2017-08-19 21:00 | PN ---
S Progress Note Note: Psychiatric nurse practitioner note: Call received by RN requesting vistaril for anxiety. Chart reviewed. Vistaril 50mg ordered every 6 hours as needed.
[2017-08-19] MEDS: THIAMINE HCL 100 MG TABLET (FP) PO SCH (21:42)
[2017-08-19] MEDS: hydrOXYzine PAMOATE 50 MG CAPSULE (FP) PO PRN (21:42)
[2017-08-20] MEDS: IBUPROFEN 400 MG TABLET (FP) PO PRN ×2 (06:23→16:43)
[2017-08-20] MEDS: hydrOXYzine PAMOATE 50 MG CAPSULE (FP) PO PRN ×3 (11:03→21:44)
[2017-08-20] MEDS: ACETAMINOPHEN 325 MG TABLET (FP) PO PRN (11:04)
[2017-08-20] MEDS: NICOTINE 21 MG/24 HOURS TOPICAL PATCH TD SCH (11:05)
[2017-08-20] MEDS: PRENATAL VITAMINS W/ FOLIC ACID TABLET (FP) PO SCH (11:06)
--- NOTE | 2017-08-20 14:27 | HP ---
Psychiatrist Admission - Data Date of interview: 08/20/17 Admission source: 3N Identifying data: This is the first 5N for the 47 year old [place]-born male who is , a father of two, homeless (lives in a long-term), unemployed and supported on personal savings. Medical History: Bronchial asthma, smokes cigarettes 1PPD. Psychiatric History: Patient reports no history of psychiatric treatment, seen by while in detox to address insomnia and was put on Ambien, c/o difficulty to fall into and maintain sleep. Physical/Sexual Abuse/Trauma History: Patient denies. Vital Signs: Vital Signs - 24 hr 08/19/17 08/20/17 08/20/17 15:00 00:59 03:30 Temperature 96.7 F L Pulse Rate 90 Respiratory 18 16 16 Rate Blood Pressure 134/76 08/20/17 06:55 Temperature 97.7 F Pulse Rate 75 Respiratory 19 Rate Blood Pressure 122/77 Allergies/Adverse Reactions: Allergies Allergy/AdvReac Type Severity Reaction Status Date / Time No Known Allergies Allergy Verified 08/19/17 14:34 Date of last physical exam: 08/14/17 Concur with the findings of this exam: Yes (ACI) - Substance Abuse/Tx History Hx Alcohol Use: Yes Hx Substance Use: Yes Substance Use Type: Alcohol (2 pints vodka daily ), Cocaine (4 50-60), Heroin ( injecting 15 bags a day.), Marijuana (2 joints adily), Tranquilizers (xanax 3-4- 6 mg daily) Hx Substance Use Treatment: Yes Mental Status Exam - Mental Status Exam Alert and Oriented to: Time, Place, Person Cognitive Function: Good Patient Appearance: Well Groomed Mood: Sad Affect: Appropriate, Mood Congruent Patient Behavior: Cooperative Speech Pattern: Clear Voice Loudness: Normal Thought Process: Intact, Goal Oriented Thought Disorder: Not Present Hallucinations: Denies Suicidal Ideation: Denies Homicidal Ideation: Denies Insight/Judgement: Good Sleep: Well Appetite: Good Muscle strength/Tone: Normal Gait/Station: Normal Psychiatric Findings - Problem List ([place] 1, 2,3) (1) Sedative hypnotic or anxiolytic dependence Current Visit: Yes Status: Acute (2) Alcohol dependence Current Visit: No Status: Active (3) Cocaine dependence Current Visit: No Status: Active (4) Nicotine dependence Current Visit: No Status: Active (5) Opioid dependence Current Visit: No Status: Active (6) Insomnia Current Visit: No Status: Acute Qualifiers: Insomnia type: unspecified Qualified Code(s): G47.00 - Insomnia, unspecified (7) Marijuana dependence Current Visit: No Status: Acute (8) Nicotine dependence Current Visit: No Status: Acute Qualifiers: Nicotine product type: cigarettes Substance use status: in withdrawal Qualified Code(s): F17.213 - Nicotine dependence, cigarettes, with withdrawal - Initial Treatment Plan Initial Treatment Plan: Indications/properties of Belsomra discussed with the patient, tx recommended, patient agreed with plan.Will add Belsomra 10 mg po hs , monitor progress.
[2017-08-20] MEDS: NICOTINE POLACRILEX 2 MG GUM BUC PRN (16:44)
[2017-08-20] MEDS: SUVOREXANT 10 MG TABLET PO SCH (21:42)
[2017-08-20] MEDS: THIAMINE HCL 100 MG TABLET (FP) PO SCH (21:42)
[2017-08-21] MEDS: hydrOXYzine PAMOATE 50 MG CAPSULE (FP) PO PRN ×3 (03:42→21:37)
[2017-08-21] MEDS: PRENATAL VITAMINS W/ FOLIC ACID TABLET (FP) PO SCH (10:18)
[2017-08-21] MEDS: NICOTINE 21 MG/24 HOURS TOPICAL PATCH TD SCH (10:18)
[2017-08-21] MEDS: ACETAMINOPHEN 325 MG TABLET (FP) PO PRN (15:37)
[2017-08-21] MEDS: SUVOREXANT 10 MG TABLET PO SCH (21:36)
[2017-08-21] MEDS: THIAMINE HCL 100 MG TABLET (FP) PO SCH (21:36)
[2017-08-22] MEDS: hydrOXYzine PAMOATE 50 MG CAPSULE (FP) PO PRN ×4 (01:55→21:50)
[2017-08-22] MEDS: MELATONIN 5 MG TABLETS PO PRN (01:55)
[2017-08-22] MEDS: NICOTINE 21 MG/24 HOURS TOPICAL PATCH TD SCH (10:17)
[2017-08-22] MEDS: PRENATAL VITAMINS W/ FOLIC ACID TABLET (FP) PO SCH (10:17)
[2017-08-22] MEDS: ACETAMINOPHEN 325 MG TABLET (FP) PO PRN ×2 (10:18→21:51)
--- NOTE | 2017-08-22 14:04 | PN ---
[facility] Progress Note Note: Patient presents with cold sweats, diarrhea, muscle aches and headache. Completed detox from heroin here at [facility]. Vital Signs Temperature 98.3 F 08/22/17 07:28 Pulse Rate 83 08/22/17 07:28 Respiratory Rate 18 08/22/17 07:28 Blood Pressure 120/70 08/22/17 07:28 O2 Sat by Pulse Oximetry (%) Obj: General: patient anxious and irritable. Resting in bed. Skin: moist and intact MS: + L/S area discomfort Ext: no edema A/P: Withdrawal syndrome Will give Clonidine 0.1mg po once continue current medical treatment continue to monitor clinically
[2017-08-22] MEDS ORDERED: cloNIDine HCL 0.1 MG TABLET PO ONE (14:15)
[2017-08-22] MEDS: THIAMINE HCL 100 MG TABLET (FP) PO SCH (21:50)
[2017-08-22] MEDS: SUVOREXANT 10 MG TABLET PO SCH (21:50)
[2017-08-23] MEDS: IBUPROFEN 400 MG TABLET (FP) PO PRN ×2 (02:49→22:02)
[2017-08-23] MEDS: hydrOXYzine PAMOATE 50 MG CAPSULE (FP) PO PRN ×2 (06:34→22:04)
[2017-08-23] MEDS: ACETAMINOPHEN 325 MG TABLET (FP) PO PRN ×2 (06:34→10:30)
[2017-08-23] MEDS: NICOTINE 21 MG/24 HOURS TOPICAL PATCH TD SCH (10:32)
[2017-08-23] MEDS: PRENATAL VITAMINS W/ FOLIC ACID TABLET (FP) PO SCH (10:33)
--- NOTE | 2017-08-23 12:52 | PN ---
S Progress Note Note: Patient c/o of difficulty sleeping although taking vistaril and belsomra at night and diarrhea. Reports has not reported issues with diarrhea to staff. Last Vital Signs Temp Pulse Resp BP Pulse Ox 98.3 F 81 18 115/65 08/23/17 07:09 08/23/17 07:09 08/23/17 07:09 08/23/17 07:09 A/P Patient AOx3, in no apparent distress, mildly anxious No adventitious breath sound Ambulating in the unit -Diarrhea -Insomnia Plan: increase fluids immodioum PRN ffor diarrhea Continue to monitor Follow up with psych re: insomnia
--- NOTE | 2017-08-23 14:42 | PN ---
Psychiatric Progress Note Vital Signs: Vital Signs Period Temp Pulse Resp BP Sys/Rashid Pulse Ox Last 24 Hr 98.3 F 81 18-18 115/65 Date of Session: 08/23/17 Chief Complaint:: "insomnia" HPI: Patient is addressing alcohol, cocaine, opioid dependence comorbid insomnia and depressive disorder. ROS: Bronchial asthma medically managed. Current Medications: Active Medications Generic Name Dose Route Start Last Admin Trade Name Freq PRN Reason Stop Dose Admin Acetaminophen 650 mg 08/19/17 12:08/23/17 10:30 Tylenol - PO 650 mg Q4H PRN Administration FEVER Al Hydroxide/Mg Hydroxide 30 ml 08/19/17 12:29 Mylanta Oral Suspension - PO Q6H PRN DYSPEPSIA Eucalyptus/Menthol/Phenol/Sorbitol 1 each 08/19/17 12:29 Cepastat Lozenge - MM Q4H PRN SORE THROAT Guaifenesin 10 ml 08/19/17 12:29 Robitussin Dm - PO Q6H PRN COUGH Hydroxyzine Pamoate 50 mg 08/19/17 20:57 08/23/17 06:34 Vistaril - PO 50 mg Q6H PRN Administration ANXIETY Ibuprofen 400 mg 08/19/17 12:29 08/23/17 02:49 Motrin - PO 400 mg Q6H PRN Administration Pain Level 4-6 Loperamide HCl 4 mg 08/19/17 12:29 Imodium - PO Q6H PRN DIARRHEA Magnesium Citrate 300 ml 08/19/17 12:29 Citroma - PO Q48H PRN CONSTIPATION Magnesium Hydroxide 30 ml 08/19/17 12:29 Milk Of Magnesia - PO DAILY PRN CONSTIPATION Melatonin 5 mg 08/19/17 22:00 08/22/17 01:55 Melatonin PO 5 mg HS PRN Administration INSOMNIA Nicotine 21 mg 08/20/17 10:00 08/23/17 10:32 Nicoderm Patch - TD 21 mg DAILY DALLIN Administration Nicotine Polacrilex 2 mg 08/19/17 12:29 08/20/17 16:44 Nicorette Gum - BUC 2 mg Q2H PRN Administration NICOTINE REPLACEMENT RX Multivit/Folic Acid/Iron 1 tab 08/20/17 10:00 08/23/17 10:33 Vitamins (Sjr) - PO 1 tab DAILY DALLIN Administration Pseudoephedrine/Triprolidine 1 combo 08/19/17 12:29 Actifed - PO TID PRN NASAL CONGESTION Suvorexant 10 mg 08/20/17 22:00 08/22/17 21:50 Belsomra PO 10 mg HS DALLIN Administration Thiamine HCl 100 mg 08/19/17 22:00 08/22/17 21:50 Vitamin B1 - PO 100 mg HS DALLIN Administration Medication(s) Change(s): add Seroquel 100 mg po hs and Lexapro 10 mg po daily. Current Side Effect: No Lab tests ordered: No Lab tests reviewed: Yes Provider note:: Patient was seen today reports has been feeling depressed, sad, unable to sleep, very anxious constantly thinking about his current life situation. He mostly spoke about his legal issues and negative consequenses of his use. He reports he isolates self, mostly stays in his room, hopeless and feeling worthless. States was on Seroquel 200 mg po hs about 3 months ago , states he saw a private psychiatrist in [facility], last time he had Seroquel was 3 months ago. PSycheducation regarding Seroquel and Lexapro discussed with the patient, treatment recommended, patient agreed with the plan, supportive therapy has been provided, will monitor progress as needed. Total face to face time:: 35 Mental Status Exam - Mental Status Exam Alert and Oriented to: Time, Place, Person Cognitive Function: Good Patient Appearance: Well Groomed Mood: Depressed, Sad Affect: Mood Congruent Patient Behavior: Crying, Appropriate, Cooperative Speech Pattern: Clear, Appropriate Voice Loudness: Normal Thought Process: Goal Oriented Thought Disorder: Not Present Hallucinations: Denies Suicidal Ideation: Denies Homicidal Ideation: Denies Insight/Judgement: Fair Sleep: Poorly, Difficulty falling asleep Appetite: Fair Muscle strength/Tone: Normal Gait/Station: Normal Psychiatric Treatment Plan - Problem List (1) Sedative hypnotic or anxiolytic dependence Current Visit: Yes (2) Alcohol dependence Current Visit: No (3) Cocaine dependence Current Visit: No (4) Nicotine dependence Current Visit: No (5) Opioid dependence Current Visit: No (6) Insomnia Current Visit: Yes Qualifiers: Insomnia type: unspecified Qualified Code(s): G47.00 - Insomnia, unspecified (7) Marijuana dependence Current Visit: No (8) Nicotine dependence Current Visit: No Qualifiers: Nicotine product type: cigarettes Substance use status: in withdrawal Qualified Code(s): F17.213 - Nicotine dependence, cigarettes, with withdrawal (9) Depressive disorder Current Visit: Yes
[2017-08-23] MEDS: QUEtiapine FUMARATE 100 MG TABLET (FP) PO SCH (22:02)
[2017-08-23] MEDS: SUVOREXANT 10 MG TABLET PO SCH (22:02)
[2017-08-23] MEDS: THIAMINE HCL 100 MG TABLET (FP) PO SCH (22:02)
[2017-08-24] MEDS: ESCITALOPRAM OXALATE 10 MG TABLET (FP) PO SCH (10:20)
[2017-08-24] MEDS: PRENATAL VITAMINS W/ FOLIC ACID TABLET (FP) PO SCH (10:20)
[2017-08-24] MEDS: NICOTINE 21 MG/24 HOURS TOPICAL PATCH TD SCH (10:21)
[2017-08-24] MEDS: hydrOXYzine PAMOATE 50 MG CAPSULE (FP) PO PRN ×2 (10:21→21:37)
[2017-08-24] MEDS: ACETAMINOPHEN 325 MG TABLET (FP) PO PRN (10:22)
[2017-08-24] MEDS: QUEtiapine FUMARATE 100 MG TABLET (FP) PO SCH (21:37)
[2017-08-24] MEDS: THIAMINE HCL 100 MG TABLET (FP) PO SCH (21:37)
[2017-08-24] MEDS: SUVOREXANT 10 MG TABLET PO SCH (21:37)
[2017-08-24] MEDS: IBUPROFEN 400 MG TABLET (FP) PO PRN (21:38)
[2017-08-25] MEDS: ESCITALOPRAM OXALATE 10 MG TABLET (FP) PO SCH (10:17)
[2017-08-25] MEDS: NICOTINE 21 MG/24 HOURS TOPICAL PATCH TD SCH (10:17)
[2017-08-25] MEDS: PRENATAL VITAMINS W/ FOLIC ACID TABLET (FP) PO SCH (10:17)
[2017-08-25] MEDS: hydrOXYzine PAMOATE 50 MG CAPSULE (FP) PO PRN ×3 (10:19→21:52)
[2017-08-25] MEDS: ACETAMINOPHEN 325 MG TABLET (FP) PO PRN ×2 (14:32→21:52)
[2017-08-25] MEDS: QUEtiapine FUMARATE 100 MG TABLET (FP) PO SCH (21:50)
[2017-08-25] MEDS: SUVOREXANT 10 MG TABLET PO SCH (21:51)
[2017-08-25] MEDS: THIAMINE HCL 100 MG TABLET (FP) PO SCH (21:51)
[2017-08-26] MEDS: PRENATAL VITAMINS W/ FOLIC ACID TABLET (FP) PO SCH (10:33)
[2017-08-26] MEDS: ESCITALOPRAM OXALATE 10 MG TABLET (FP) PO SCH (10:33)
[2017-08-26] MEDS: hydrOXYzine PAMOATE 50 MG CAPSULE (FP) PO PRN ×3 (10:33→21:56)
[2017-08-26] MEDS: NICOTINE 21 MG/24 HOURS TOPICAL PATCH TD SCH (10:34)
[2017-08-26] MEDS: IBUPROFEN 400 MG TABLET (FP) PO PRN ×2 (10:35→21:55)
[2017-08-26] MEDS: QUEtiapine FUMARATE 100 MG TABLET (FP) PO SCH (21:54)
[2017-08-26] MEDS: THIAMINE HCL 100 MG TABLET (FP) PO SCH (21:54)
[2017-08-26] MEDS: SUVOREXANT 10 MG TABLET PO SCH (21:54)
[2017-08-27] MEDS: ACETAMINOPHEN 325 MG TABLET (FP) PO PRN ×2 (06:29→22:01)
[2017-08-27] MEDS: hydrOXYzine PAMOATE 50 MG CAPSULE (FP) PO PRN ×2 (06:29→21:58)
[2017-08-27] MEDS: ESCITALOPRAM OXALATE 10 MG TABLET (FP) PO SCH (10:34)
[2017-08-27] MEDS: PRENATAL VITAMINS W/ FOLIC ACID TABLET (FP) PO SCH (10:34)
[2017-08-27] MEDS: NICOTINE 21 MG/24 HOURS TOPICAL PATCH TD SCH (10:34)
[2017-08-27] MEDS: QUEtiapine FUMARATE 100 MG TABLET (FP) PO SCH (21:58)
[2017-08-27] MEDS: THIAMINE HCL 100 MG TABLET (FP) PO SCH (21:58)
[2017-08-27] MEDS ORDERED: SUVOREXANT 10 MG TABLET PO ONE (22:00)
--- NOTE | 2017-08-28 10:25 | PN ---
[facility] Progress Note Note: Called by nursing staff reporting patient requests renewal of Belsomra. Belsomra 10 mg po HS prn for insomnia ordered
[2017-08-28] MEDS: ESCITALOPRAM OXALATE 10 MG TABLET (FP) PO SCH (10:26)
[2017-08-28] MEDS: PRENATAL VITAMINS W/ FOLIC ACID TABLET (FP) PO SCH (10:26)
[2017-08-28] MEDS: NICOTINE 21 MG/24 HOURS TOPICAL PATCH TD SCH (10:26)
[2017-08-28] MEDS: IBUPROFEN 400 MG TABLET (FP) PO PRN (10:27)
[2017-08-28] MEDS: hydrOXYzine PAMOATE 50 MG CAPSULE (FP) PO PRN ×2 (10:27→17:45)
[2017-08-28] MEDS: QUEtiapine FUMARATE 100 MG TABLET (FP) PO SCH (21:40)
[2017-08-28] MEDS: THIAMINE HCL 100 MG TABLET (FP) PO SCH (21:40)
[2017-08-28] MEDS: SUVOREXANT 10 MG TABLET PO PRN (21:40)
[2017-08-29] MEDS: PRENATAL VITAMINS W/ FOLIC ACID TABLET (FP) PO SCH (10:42)
[2017-08-29] MEDS: NICOTINE 21 MG/24 HOURS TOPICAL PATCH TD SCH (10:42)
[2017-08-29] MEDS: ESCITALOPRAM OXALATE 10 MG TABLET (FP) PO SCH (10:42)
[2017-08-29] MEDS: hydrOXYzine PAMOATE 50 MG CAPSULE (FP) PO PRN ×2 (10:43→21:43)
--- NOTE | 2017-08-29 12:17 | PN ---
[facility] Progress Note Note: Patient was seen today, requested to increase Seroquel due to having racing thoughts and treated in the past with 200 mg, will increase medication and monitor progress.
[2017-08-29] MEDS: THIAMINE HCL 100 MG TABLET (FP) PO SCH (21:43)
[2017-08-29] MEDS: QUEtiapine FUMARATE 200 MG TABLET PO SCH (21:43)
[2017-08-29] MEDS: SUVOREXANT 10 MG TABLET PO PRN (21:45)
[2017-08-30] MEDS: ESCITALOPRAM OXALATE 10 MG TABLET (FP) PO SCH (10:47)
[2017-08-30] MEDS: NICOTINE 21 MG/24 HOURS TOPICAL PATCH TD SCH (10:47)
[2017-08-30] MEDS: PRENATAL VITAMINS W/ FOLIC ACID TABLET (FP) PO SCH (10:47)
[2017-08-30] MEDS: IBUPROFEN 400 MG TABLET (FP) PO PRN ×2 (10:48→21:53)
[2017-08-30] MEDS: hydrOXYzine PAMOATE 50 MG CAPSULE (FP) PO PRN ×3 (10:48→21:54)
[2017-08-30] MEDS: QUEtiapine FUMARATE 200 MG TABLET PO SCH (21:52)
[2017-08-30] MEDS: THIAMINE HCL 100 MG TABLET (FP) PO SCH (21:52)
[2017-08-30] MEDS: SUVOREXANT 10 MG TABLET PO PRN (21:54)
[2017-08-31] MEDS: PRENATAL VITAMINS W/ FOLIC ACID TABLET (FP) PO SCH (10:35)
[2017-08-31] MEDS: ESCITALOPRAM OXALATE 10 MG TABLET (FP) PO SCH (10:35)
[2017-08-31] MEDS: NICOTINE 21 MG/24 HOURS TOPICAL PATCH TD SCH (10:35)
[2017-08-31] MEDS: hydrOXYzine PAMOATE 50 MG CAPSULE (FP) PO PRN ×3 (10:36→21:51)
[2017-08-31] MEDS: ACETAMINOPHEN 325 MG TABLET (FP) PO PRN (10:36)
[2017-08-31] MEDS: QUEtiapine FUMARATE 200 MG TABLET PO SCH (21:51)
[2017-08-31] MEDS: THIAMINE HCL 100 MG TABLET (FP) PO SCH (21:51)
[2017-08-31] MEDS: SUVOREXANT 10 MG TABLET PO PRN (21:51)
[2017-08-31] MEDS: IBUPROFEN 400 MG TABLET (FP) PO PRN (21:51)
[2017-09-01] MEDS: hydrOXYzine PAMOATE 50 MG CAPSULE (FP) PO PRN ×2 (10:31→21:43)
[2017-09-01] MEDS: PRENATAL VITAMINS W/ FOLIC ACID TABLET (FP) PO SCH (10:31)
[2017-09-01] MEDS: ESCITALOPRAM OXALATE 10 MG TABLET (FP) PO SCH (10:31)
[2017-09-01] MEDS: NICOTINE 21 MG/24 HOURS TOPICAL PATCH TD SCH (10:32)
[2017-09-01] MEDS: QUEtiapine FUMARATE 200 MG TABLET PO SCH (21:43)
[2017-09-01] MEDS: IBUPROFEN 400 MG TABLET (FP) PO PRN (21:44)
[2017-09-01] MEDS: THIAMINE HCL 100 MG TABLET (FP) PO SCH (21:44)
--- NOTE | 2017-09-01 23:20 | PN ---
S Progress Note Note: Psychiatric nurse practitioner marine service station attendant note: Call received by RN requesting Belsomra 10mg qhs prn. Verbal consent given. Belsomra 10mg qhs prn ordered.
[2017-09-01] MEDS: SUVOREXANT 10 MG TABLET PO PRN (23:31)
[2017-09-02] MEDS: IBUPROFEN 400 MG TABLET (FP) PO PRN (10:19)
[2017-09-02] MEDS: PRENATAL VITAMINS W/ FOLIC ACID TABLET (FP) PO SCH (10:20)
[2017-09-02] MEDS: ESCITALOPRAM OXALATE 10 MG TABLET (FP) PO SCH (10:20)
[2017-09-02] MEDS: NICOTINE 21 MG/24 HOURS TOPICAL PATCH TD SCH (10:21)
[2017-09-02] MEDS: hydrOXYzine PAMOATE 50 MG CAPSULE (FP) PO PRN ×2 (10:21→21:52)
[2017-09-02] MEDS: THIAMINE HCL 100 MG TABLET (FP) PO SCH (21:52)
[2017-09-02] MEDS: QUEtiapine FUMARATE 200 MG TABLET PO SCH (21:52)
[2017-09-02] MEDS: SUVOREXANT 10 MG TABLET PO PRN (21:52)
[2017-09-03] MEDS: PRENATAL VITAMINS W/ FOLIC ACID TABLET (FP) PO SCH (10:44)
[2017-09-03] MEDS: ESCITALOPRAM OXALATE 10 MG TABLET (FP) PO SCH (10:44)
[2017-09-03] MEDS: NICOTINE 21 MG/24 HOURS TOPICAL PATCH TD SCH (10:44)
[2017-09-03] MEDS: hydrOXYzine PAMOATE 50 MG CAPSULE (FP) PO PRN ×2 (10:45→21:37)
[2017-09-03] MEDS: SUVOREXANT 10 MG TABLET PO PRN (21:37)
[2017-09-03] MEDS: QUEtiapine FUMARATE 200 MG TABLET PO SCH (21:37)
[2017-09-03] MEDS: THIAMINE HCL 100 MG TABLET (FP) PO SCH (21:37)
[2017-09-04] MEDS: PRENATAL VITAMINS W/ FOLIC ACID TABLET (FP) PO SCH (09:37)
[2017-09-04] MEDS: hydrOXYzine PAMOATE 50 MG CAPSULE (FP) PO PRN ×2 (09:37→21:39)
[2017-09-04] MEDS: NICOTINE 21 MG/24 HOURS TOPICAL PATCH TD SCH (09:37)
[2017-09-04] MEDS: ESCITALOPRAM OXALATE 10 MG TABLET (FP) PO SCH (09:37)
[2017-09-04] MEDS: THIAMINE HCL 100 MG TABLET (FP) PO SCH (21:38)
[2017-09-04] MEDS: SUVOREXANT 10 MG TABLET PO PRN (21:38)
[2017-09-04] MEDS: QUEtiapine FUMARATE 200 MG TABLET PO SCH (21:38)
[2017-09-05] MEDS: ESCITALOPRAM OXALATE 10 MG TABLET (FP) PO SCH (10:32)
[2017-09-05] MEDS: PRENATAL VITAMINS W/ FOLIC ACID TABLET (FP) PO SCH (10:32)
[2017-09-05] MEDS: hydrOXYzine PAMOATE 50 MG CAPSULE (FP) PO PRN ×2 (10:33→21:42)
[2017-09-05] MEDS: NICOTINE 21 MG/24 HOURS TOPICAL PATCH TD SCH (10:36)
--- NOTE | 2017-09-05 13:24 | PN ---
[facility] Progress Note Note: patient reports a good response to belsomra, will r/n
[2017-09-05] MEDS: SUVOREXANT 10 MG TABLET PO SCH (21:42)
[2017-09-05] MEDS: THIAMINE HCL 100 MG TABLET (FP) PO SCH (21:42)
[2017-09-05] MEDS: MELATONIN 5 MG TABLETS PO PRN (21:42)
[2017-09-05] MEDS: QUEtiapine FUMARATE 200 MG TABLET PO SCH (21:42)
[2017-09-06] MEDS: ESCITALOPRAM OXALATE 10 MG TABLET (FP) PO SCH (10:45)
[2017-09-06] MEDS: NICOTINE 21 MG/24 HOURS TOPICAL PATCH TD SCH (10:45)
[2017-09-06] MEDS: PRENATAL VITAMINS W/ FOLIC ACID TABLET (FP) PO SCH (10:45)
[2017-09-06] MEDS: IBUPROFEN 400 MG TABLET (FP) PO PRN ×2 (10:45→21:45)
[2017-09-06] MEDS: hydrOXYzine PAMOATE 50 MG CAPSULE (FP) PO PRN ×2 (10:46→21:45)
[2017-09-06] MEDS: QUEtiapine FUMARATE 200 MG TABLET PO SCH (21:45)
[2017-09-06] MEDS: MELATONIN 5 MG TABLETS PO PRN (21:45)
[2017-09-06] MEDS: SUVOREXANT 10 MG TABLET PO SCH (21:45)
[2017-09-06] MEDS: THIAMINE HCL 100 MG TABLET (FP) PO SCH (21:46)
[2017-09-07] MEDS: hydrOXYzine PAMOATE 50 MG CAPSULE (FP) PO PRN ×2 (09:57→21:36)
[2017-09-07] MEDS: PRENATAL VITAMINS W/ FOLIC ACID TABLET (FP) PO SCH (09:57)
[2017-09-07] MEDS: NICOTINE 21 MG/24 HOURS TOPICAL PATCH TD SCH (09:57)
[2017-09-07] MEDS: ESCITALOPRAM OXALATE 10 MG TABLET (FP) PO SCH (09:57)
[2017-09-07] MEDS: MELATONIN 5 MG TABLETS PO PRN (21:36)
[2017-09-07] MEDS: THIAMINE HCL 100 MG TABLET (FP) PO SCH (21:36)
[2017-09-07] MEDS: SUVOREXANT 10 MG TABLET PO SCH (21:36)
[2017-09-07] MEDS: QUEtiapine FUMARATE 200 MG TABLET PO SCH (21:36)
[2017-09-08] MEDS: hydrOXYzine PAMOATE 50 MG CAPSULE (FP) PO PRN ×2 (10:14→21:59)
[2017-09-08] MEDS: ESCITALOPRAM OXALATE 10 MG TABLET (FP) PO SCH (10:14)
[2017-09-08] MEDS: PRENATAL VITAMINS W/ FOLIC ACID TABLET (FP) PO SCH (10:14)
[2017-09-08] MEDS: NICOTINE 21 MG/24 HOURS TOPICAL PATCH TD SCH (10:15)
[2017-09-08] MEDS ORDERED: PT OWN MED DRAWER 7, Y5N ONE (16:15)
[2017-09-08] MEDS: THIAMINE HCL 100 MG TABLET (FP) PO SCH (21:59)
[2017-09-08] MEDS: MELATONIN 5 MG TABLETS PO PRN (21:59)
[2017-09-08] MEDS: SUVOREXANT 10 MG TABLET PO SCH (21:59)
[2017-09-08] MEDS: QUEtiapine FUMARATE 200 MG TABLET PO SCH (21:59)
[2017-09-09] MEDS: ESCITALOPRAM OXALATE 10 MG TABLET (FP) PO SCH (10:17)
[2017-09-09] MEDS: PRENATAL VITAMINS W/ FOLIC ACID TABLET (FP) PO SCH (10:17)
[2017-09-09] MEDS: NICOTINE 21 MG/24 HOURS TOPICAL PATCH TD SCH (10:17)
[2017-09-09] MEDS: hydrOXYzine PAMOATE 50 MG CAPSULE (FP) PO PRN ×2 (10:18→21:47)
[2017-09-09] MEDS: MELATONIN 5 MG TABLETS PO PRN (21:46)
[2017-09-09] MEDS: QUEtiapine FUMARATE 200 MG TABLET PO SCH (21:46)
[2017-09-09] MEDS: SUVOREXANT 10 MG TABLET PO SCH (21:46)
[2017-09-09] MEDS: THIAMINE HCL 100 MG TABLET (FP) PO SCH (21:46)
[2017-09-10] MEDS: NICOTINE 21 MG/24 HOURS TOPICAL PATCH TD SCH (10:44)
[2017-09-10] MEDS: ESCITALOPRAM OXALATE 10 MG TABLET (FP) PO SCH (10:44)
[2017-09-10] MEDS: PRENATAL VITAMINS W/ FOLIC ACID TABLET (FP) PO SCH (10:44)
[2017-09-10] MEDS: hydrOXYzine PAMOATE 50 MG CAPSULE (FP) PO PRN ×2 (10:45→21:41)
[2017-09-10] MEDS: QUEtiapine FUMARATE 200 MG TABLET PO SCH (21:41)
[2017-09-10] MEDS: THIAMINE HCL 100 MG TABLET (FP) PO SCH (21:41)
[2017-09-10] MEDS: MELATONIN 5 MG TABLETS PO PRN (21:41)
[2017-09-10] MEDS: SUVOREXANT 10 MG TABLET PO SCH (21:41)
[2017-09-11] MEDS: ESCITALOPRAM OXALATE 10 MG TABLET (FP) PO SCH (10:40)
[2017-09-11] MEDS: PRENATAL VITAMINS W/ FOLIC ACID TABLET (FP) PO SCH (10:40)
[2017-09-11] MEDS: hydrOXYzine PAMOATE 50 MG CAPSULE (FP) PO PRN ×2 (10:40→21:47)
[2017-09-11] MEDS: NICOTINE 21 MG/24 HOURS TOPICAL PATCH TD SCH (10:40)
[2017-09-11] MEDS: IBUPROFEN 400 MG TABLET (FP) PO PRN (10:41)
[2017-09-11] MEDS: THIAMINE HCL 100 MG TABLET (FP) PO SCH (21:47)
[2017-09-11] MEDS: MELATONIN 5 MG TABLETS PO PRN (21:47)
[2017-09-11] MEDS: SUVOREXANT 10 MG TABLET PO SCH (21:48)
[2017-09-11] MEDS: QUEtiapine FUMARATE 200 MG TABLET PO SCH (21:48)
[2017-09-12] MEDS: hydrOXYzine PAMOATE 50 MG CAPSULE (FP) PO PRN ×2 (10:42→21:42)
[2017-09-12] MEDS: PRENATAL VITAMINS W/ FOLIC ACID TABLET (FP) PO SCH (10:42)
[2017-09-12] MEDS: ESCITALOPRAM OXALATE 10 MG TABLET (FP) PO SCH (10:42)
[2017-09-12] MEDS: NICOTINE 21 MG/24 HOURS TOPICAL PATCH TD SCH (10:43)
[2017-09-12] MEDS: QUEtiapine FUMARATE 200 MG TABLET PO SCH (21:42)
[2017-09-12] MEDS: MELATONIN 5 MG TABLETS PO PRN (21:42)
[2017-09-12] MEDS: THIAMINE HCL 100 MG TABLET (FP) PO SCH (21:42)
[2017-09-12] MEDS: SUVOREXANT 10 MG TABLET PO SCH (22:44)
[2017-09-13] MEDS: hydrOXYzine PAMOATE 50 MG CAPSULE (FP) PO PRN ×2 (10:38→21:53)
[2017-09-13] MEDS: PRENATAL VITAMINS W/ FOLIC ACID TABLET (FP) PO SCH (10:38)
[2017-09-13] MEDS: NICOTINE 21 MG/24 HOURS TOPICAL PATCH TD SCH (10:38)
[2017-09-13] MEDS: ESCITALOPRAM OXALATE 10 MG TABLET (FP) PO SCH (10:38)
[2017-09-13] MEDS: SUVOREXANT 10 MG TABLET PO SCH (21:53)
[2017-09-13] MEDS: QUEtiapine FUMARATE 200 MG TABLET PO SCH (21:53)
[2017-09-13] MEDS: THIAMINE HCL 100 MG TABLET (FP) PO SCH (21:54)
[2017-09-13] MEDS: MELATONIN 5 MG TABLETS PO PRN (21:54)
[2017-09-14] MEDS: hydrOXYzine PAMOATE 50 MG CAPSULE (FP) PO PRN ×2 (10:25→21:38)
[2017-09-14] MEDS: PRENATAL VITAMINS W/ FOLIC ACID TABLET (FP) PO SCH (10:25)
[2017-09-14] MEDS: ESCITALOPRAM OXALATE 10 MG TABLET (FP) PO SCH (10:25)
[2017-09-14] MEDS: NICOTINE 21 MG/24 HOURS TOPICAL PATCH TD SCH (10:26)
[2017-09-14] MEDS: QUEtiapine FUMARATE 200 MG TABLET PO SCH (21:38)
[2017-09-14] MEDS: SUVOREXANT 10 MG TABLET PO SCH (21:38)
[2017-09-14] MEDS: THIAMINE HCL 100 MG TABLET (FP) PO SCH (21:38)
[2017-09-14] MEDS: MELATONIN 5 MG TABLETS PO PRN (21:38)
[2017-09-15] MEDS: ESCITALOPRAM OXALATE 10 MG TABLET (FP) PO SCH (10:38)
[2017-09-15] MEDS: PRENATAL VITAMINS W/ FOLIC ACID TABLET (FP) PO SCH (10:38)
[2017-09-15] MEDS: NICOTINE 21 MG/24 HOURS TOPICAL PATCH TD SCH (10:38)
[2017-09-15] MEDS: MELATONIN 5 MG TABLETS PO PRN (21:51)
[2017-09-15] MEDS: QUEtiapine FUMARATE 200 MG TABLET PO SCH (21:51)
[2017-09-15] MEDS: hydrOXYzine PAMOATE 50 MG CAPSULE (FP) PO PRN (21:51)
[2017-09-15] MEDS: SUVOREXANT 10 MG TABLET PO SCH (21:51)
[2017-09-15] MEDS: THIAMINE HCL 100 MG TABLET (FP) PO SCH (21:51)
[2017-09-16 06:59] VITALS: PULSE 68; TEMP 97.8
[2017-09-16] MEDS ORDERED: PT OWN MED DRAWER 7, Y5N ONE (10:22)
[2017-09-16] MEDS: NICOTINE 21 MG/24 HOURS TOPICAL PATCH TD SCH (10:33)
[2017-09-16] MEDS: ESCITALOPRAM OXALATE 10 MG TABLET (FP) PO SCH (10:33)
[2017-09-16] MEDS: PRENATAL VITAMINS W/ FOLIC ACID TABLET (FP) PO SCH (10:33)
[2017-09-16] MEDS: NICOTINE POLACRILEX 2 MG GUM BUC PRN (20:08)
[2017-09-16] MEDS: MELATONIN 5 MG TABLETS PO PRN (21:39)
[2017-09-16] MEDS: QUEtiapine FUMARATE 200 MG TABLET PO SCH (21:39)
[2017-09-16] MEDS: SUVOREXANT 10 MG TABLET PO SCH (21:39)
[2017-09-16] MEDS: THIAMINE HCL 100 MG TABLET (FP) PO SCH (21:39)
[2017-09-16] MEDS: hydrOXYzine PAMOATE 50 MG CAPSULE (FP) PO PRN (21:39)
[2017-09-16] MEDS: IBUPROFEN 400 MG TABLET (FP) PO PRN (21:41)
[2017-09-17] MEDS: PRENATAL VITAMINS W/ FOLIC ACID TABLET (FP) PO SCH (10:53)
[2017-09-17] MEDS: ESCITALOPRAM OXALATE 10 MG TABLET (FP) PO SCH (10:53)
[2017-09-17] MEDS: NICOTINE 21 MG/24 HOURS TOPICAL PATCH TD SCH (10:53)
--- NOTE | 2017-09-17 13:04 | PN ---
Psychiatric Progress Note Vital Signs: Vital Signs Period Temp Pulse Resp BP Sys/Rashid Pulse Ox Last 24 Hr 97.8 F 68 18-18 103/72 Date of Session: 09/17/17 Chief Complaint:: discharge visit HPI: Patient is addressing alcohol, cocaine, opioid dependence comorbid insomnia and depressive disorder. ROS: Bronchial asthma medically managed. Current Medications: Active Medications Generic Name Dose Route Start Last Admin Trade Name Freq PRN Reason Stop Dose Admin Acetaminophen 650 mg 08/27/17 17:35 08/31/17 10:36 Tylenol - PO 650 mg Q4H PRN Administration PAIN LEVEL 1 - 3 Al Hydroxide/Mg Hydroxide 30 ml 08/19/17 12:29 Mylanta Oral Suspension - PO Q6H PRN DYSPEPSIA Escitalopram Oxalate 10 mg 08/24/17 10:00 09/17/17 10:53 Lexapro - PO Not Given DAILY DALLIN Eucalyptus/Menthol/Phenol/Sorbitol 1 each 08/19/17 12:29 Cepastat Lozenge - MM Q4H PRN SORE THROAT Guaifenesin 10 ml 08/19/17 12:29 Robitussin Dm - PO Q6H PRN COUGH Hydroxyzine Pamoate 50 mg 08/19/17 20:57 09/16/17 21:39 Vistaril - PO 50 mg Q6H PRN Administration ANXIETY Ibuprofen 400 mg 08/19/17 12:29 09/16/17 21:41 Motrin - PO 400 mg Q6H PRN Administration Pain Level 4-6 Loperamide HCl 4 mg 08/19/17 12:29 Imodium - PO Q6H PRN DIARRHEA Magnesium Citrate 300 ml 08/19/17 12:29 Citroma - PO Q48H PRN CONSTIPATION Magnesium Hydroxide 30 ml 08/19/17 12:29 Milk Of Magnesia - PO DAILY PRN CONSTIPATION Melatonin 5 mg 08/19/17 22:00 09/16/17 21:39 Melatonin PO 5 mg HS PRN Administration INSOMNIA Nicotine 21 mg 08/20/17 10:00 09/17/17 10:53 Nicoderm Patch - TD Not Given DAILY DALLIN Nicotine Polacrilex 2 mg 08/19/17 12:29 09/16/17 20:08 Nicorette Gum - BUC 2 mg Q2H PRN Administration NICOTINE REPLACEMENT RX Multivit/Folic Acid/Iron 1 tab 08/20/17 10:00 09/17/17 10:53 Vitamins (Sjr) - PO Not Given DAILY DALLIN Pseudoephedrine/Triprolidine 1 combo 08/19/17 12:29 Actifed - PO TID PRN NASAL CONGESTION Quetiapine Fumarate 200 mg 08/29/17 22:00 09/16/17 21:39 Seroquel - PO 200 mg HS DALLIN Administration Suvorexant 10 mg 09/12/17 22:45 09/16/17 21:39 Belsomra PO 10 mg HS DALLIN Administration Thiamine HCl 100 mg 08/19/17 22:00 09/16/17 21:39 Vitamin B1 - PO 100 mg HS DALLIN Administration Current Side Effect: No Lab tests ordered: No Lab tests reviewed: Yes Provider note:: The patient will complete this treatment and meet his goals on , he will continue to address his issues at [facility] opd. Patient focuses on importance of continuing to maintain abstinence, changing attitude for the utilization of supports to prevent relapses, Seroquel and Lexapro well tolerated, scripts provided for 30 days, pt is stable for discharge on 09/18 Total face to face time:: 15 Mental Status Exam - Mental Status Exam Alert and Oriented to: Time, Place, Person Cognitive Function: Good Patient Appearance: Well Groomed Mood: Hopeful Affect: Appropriate, Mood Congruent Patient Behavior: Appropriate, Cooperative Speech Pattern: Clear, Appropriate Voice Loudness: Normal Thought Process: Intact, Goal Oriented Thought Disorder: Not Present Hallucinations: Denies Suicidal Ideation: Denies Homicidal Ideation: Denies Insight/Judgement: Fair Sleep: Fair Appetite: Good Muscle strength/Tone: Normal Gait/Station: Normal Psychiatric Treatment Plan - Problem List (6) Insomnia Qualifiers: Insomnia type: unspecified Qualified Code(s): G47.00 - Insomnia, unspecified (8) Nicotine dependence Qualifiers: Nicotine product type: cigarettes Substance use status: in withdrawal Qualified Code(s): F17.213 - Nicotine dependence, cigarettes, with withdrawal
[2017-09-17] MEDS: QUEtiapine FUMARATE 200 MG TABLET PO SCH (21:47)
[2017-09-17] MEDS: THIAMINE HCL 100 MG TABLET (FP) PO SCH (21:47)
[2017-09-17] MEDS: MELATONIN 5 MG TABLETS PO PRN (21:47)
[2017-09-17] MEDS: SUVOREXANT 10 MG TABLET PO SCH (21:47)
[2017-09-17] MEDS: hydrOXYzine PAMOATE 50 MG CAPSULE (FP) PO PRN (21:47)
[2017-09-18 06:39] VITALS: BP 107/70
[2017-09-18] MEDS: NICOTINE 21 MG/24 HOURS TOPICAL PATCH TD SCH (10:29)
[2017-09-18] MEDS: PRENATAL VITAMINS W/ FOLIC ACID TABLET (FP) PO SCH (10:29)
[2017-09-18] MEDS: ESCITALOPRAM OXALATE 10 MG TABLET (FP) PO SCH (10:29)
[2017-09-18] MEDS: hydrOXYzine PAMOATE 50 MG CAPSULE (FP) PO PRN (10:40)
== END 2017-09-18 11:45 | disposition home or self-care (01) | DRG 772 ==
LOC: YASAS 12:47 → Y5N 12:48
PROVIDERS: ADMIT Psychiatry & Neurology Psychiatry; ATTEND Psychiatry & Neurology Psychiatry
PROC: HZ42ZZZ Group Counseling for Substance Abuse Treatment, Cognitive-Behavioral (ICD-10-PCS; principal; 2017-08-19)
DX: F11.20 Opioid dependence, uncomplicated (principal); F13.20 Sedative, hypnotic or anxiolytic dependence, uncomplicated; F10.20 Alcohol dependence, uncomplicated; F14.20 Cocaine dependence, uncomplicated; F12.20 Cannabis dependence, uncomplicated; F17.213 Nicotine dependence, cigarettes, with withdrawal; F32.9 Major depressive disorder, single episode, unspecified; G47.00 Insomnia, unspecified; Z59.0 Homelessness
CPT/HCPCS: J0735